=== PATIENT | male | born 1950 | race Caucasian/White ===

== ENCOUNTER → 2017-04-11 | Outpatient (CLI) | payer OTHER ==
[~2017-04-11] MED LIST: ASPI-621 PO; ATOR80TA75 PO; CITA10TA8 PO; DOXE25CA PO; LISI5TAB7 PO; METO25TA91 PO; NITR12SP2 SL; TICA90TA PO
== END | disposition home or self-care (01) ==
LOC: RAD 13:43
PROVIDERS: ATTEND Neurological Surgery
DX: M76.61 Achilles tendinitis, right leg (principal)

== ENCOUNTER → 2017-04-14 | Outpatient (CLI) | payer OTHER ==
[2017-04-14 07:26] LABS: ASPARTATE AMINO TRANSFERASE 19 U/L (15-37); BLOOD UREA NITROGEN 20 mg/dL (7-18)
== END | disposition home or self-care (01) ==
LOC: LAB 07:03
PROVIDERS: ATTEND Internal Medicine Cardiovascular Disease
DX: E78.2 Mixed hyperlipidemia (principal)
CPT/HCPCS: 36415; 80053; 80061

== ENCOUNTER → 2018-10-11 | Outpatient (CLI) | payer MEDICARE ==
[~2018-10-11] MED LIST changes: -ASPI-621 PO; +ASPI81TA45 PO; +ATOR-2 PO; -ATOR80TA75 PO
== END | disposition home or self-care (01) ==
LOC: CFH 07:22
PROVIDERS: ATTEND Internal Medicine Cardiovascular Disease
DX: I25.10 Atherosclerotic heart disease of native coronary artery without angina pectoris (principal); I25.2 Old myocardial infarction
CPT/HCPCS: 78452; 93017; A9502

== ENCOUNTER 2019-01-19 22:09 | Inpatient (IN) | payer MEDICARE ==
[~2019-01-19] VITALS: Ht 167.6 cm; Wt 70.4 kg
[2019-01-19] MEDS ORDERED: ONDANSETRON 2MG/ML, 2ML IVPush ONE (22:30)
[2019-01-19] MEDS ORDERED: ASPIRIN 81 MG TABLET CHEW PO ONE (22:30)
[2019-01-19] MEDS ORDERED: MORPHINE SULFATE 4 MG/ML, 1ML IVPush PRN (22:30)
--- NOTE | 2019-01-19 22:35 | NUR ---
Dr. Kumar at bedside to evaluate pt. XR complete. Pt c/o left side CP intermittently since his heart attacks and stents 2 years ago. Pt reports that CP tonight. Pt states that he has been feeling palpitations, mainly at night. PVCs noted on 4 lead. Pt states he had a normal stress test 2 months ago.
--- NOTE | 2019-01-19 22:38 | NUR ---
PIV started, labs drawn and sent via tubes. Pt remains on all monitors.
--- NOTE | 2019-01-19 22:40 | NUR ---
Pt declining pain medication, this RN to bring in ASA.
[2019-01-19 23:12] LABS: BASOPHILS # (AUTO) 0.07 x10^3/uL (0-0.1); BASOPHILS % (AUTO) 1 % (0-1); EOSINOPHILS # (AUTO) 0.17 x10^3/uL (0-0.4); EOSINOPHILS % (AUTO) 3 % (1-7); LYMPHOCYTES # (AUTO) 2.85 x10^3/uL (1-3.4); LYMPHOCYTES % (AUTO) 44 % (22-44); MD NO; MEAN CORPUSCULAR HEMOGLOBIN 30.3 pg (27.5-34.5); MEAN CORPUSCULAR HGB CONC 33.9 g/dL (33.2-36.2); MEAN CORPUSCULAR VOLUME 89.4 fL (81-97); MEAN PLATELET VOLUME 7.7 fL (7.4-10.4); MONOCYTES # (AUTO) 0.57 x10^3/uL (0.2-0.8); MONOCYTES % (AUTO) 9 % (2-9); NEUTROPHILS # (AUTO) 2.81 x10^3/uL (1.8-6.8); NEUTROPHILS % (AUTO) 43 % (42-75); PLATELET COUNT 247 x10^3/uL (130-400); RED CELL DISTRIBUTION WIDTH 13.7 % (9.4-14.8)
[2019-01-19 23:17] LABS: ALANINE AMINOTRANSFERASE 33 U/L (12-78); ALBUMIN 3.6 g/dL (3.4-5.0); ANION GAP 5 mmol/L (5-15); CALCIUM 10.3 mg/dL (8.5-10.1); CHLORIDE 113 mmol/L (98-107); CREATININE 1.29 mg/dL (0.7-1.3); INTERNATIONAL NORMALIZED RATIO 0.95 (0.93-1.1)
[2019-01-19 23:22] LABS: ALKALINE PHOSPHATASE 65 U/L (45-117); BILIRUBIN,TOTAL 0.5 mg/dL (0.2-1.0); TOTAL PROTEIN 6.6 g/dL (6.4-8.2); TROPONIN I < 0.015 ng/mL (0.000-0.045)
[2019-01-19] MEDS ORDERED: ASPIRIN 81 MG TABLET CHEW ONE (23:29)
--- NOTE | 2019-01-19 23:40 | NUR ---
Pt medicated per MAR.
[2019-01-20] MEDS ORDERED: lisinopril (00:28)
[2019-01-20] MEDS ORDERED: [UNRECOGNIZED DRUG - OTHER] SC (00:28)
[2019-01-20] MEDS ORDERED: LISI5TAB7 PO (00:28)
--- NOTE | 2019-01-20 00:29 | NUR ---
Telephone SBAR report given to RN[facility]acido. Pt made aware of new room assignment.
[2019-01-20] MEDS ORDERED: POLYETHYLENE GLYCOL 17 GM PACKET PO PRN (01:00)
[2019-01-20] MEDS ORDERED: hydrALAzine 20 MG/ML, 1ML IVPush PRN (01:00)
[2019-01-20] MEDS ORDERED: ACETAMINOPHEN 325 MG TABLET PO PRN (01:00)
[2019-01-20] MEDS ORDERED: ENOXAPARIN 40 MG/0.4 ML SQ SCH (01:00)
[2019-01-20 01:12] LABS: TROPONIN I < 0.015 ng/mL (0.000-0.045)
[2019-01-20 01:38] VITALS: BP 137/82
[2019-01-20 01:53] VITALS: BP 137/82
[2019-01-20] MEDS ORDERED: METOPROLOL SUCCINATE 25 MG TAB.ER.24H PO SCH (06:00)
[2019-01-20 06:10] VITALS: BP 127/86
[2019-01-20 07:00] LABS: TROPONIN I < 0.015 ng/mL (0.000-0.045)
[2019-01-20 07:57] VITALS: BP 118/74
[2019-01-20] MEDS ORDERED: CITALOPRAM 10 MG TABLET PO SCH (09:00)
[2019-01-20] MEDS ORDERED: ASPIRIN 81 MG TABLET EC PO SCH (09:00)
[2019-01-20] MEDS ORDERED: DOXEPIN 100 MG CAPSULE PO SCH (09:00)
[2019-01-20] MEDS ORDERED: LISINOPRIL 5 MG TABLET PO SCH (09:00)
== END 2019-01-20 09:55 | disposition home or self-care (01) | DRG 309 ==
LOC: ED 23:18 → EDIP 23:52 → 5SO 01-20 01:01 → DCLOUNGE 01-20 09:46
PROVIDERS: ADMIT Family Medicine; ATTEND Family Medicine
DX: I48.92 Unspecified atrial flutter (principal); I13.0 Hypertensive heart and chronic kidney disease with heart failure and stage 1 through stage 4 chronic kidney disease, or unspecified chronic kidney disease; I50.32 Chronic diastolic (congestive) heart failure; E78.5 Hyperlipidemia, unspecified; F17.290 Nicotine dependence, other tobacco product, uncomplicated; I25.10 Atherosclerotic heart disease of native coronary artery without angina pectoris; F32.9 Major depressive disorder, single episode, unspecified; I49.3 Ventricular premature depolarization; K21.9 Gastro-esophageal reflux disease without esophagitis; N18.3 Chronic kidney disease, stage 3 (moderate); I25.2 Old myocardial infarction; Z90.49 Acquired absence of other specified parts of digestive tract; Z95.5 Presence of coronary angioplasty implant and graft; Z79.82 Long term (current) use of aspirin; I48.91 Unspecified atrial fibrillation
CPT/HCPCS: 36415; 71045; 80053; 83880; 84484; 85025; 85610; 85730; 93005; 99285; J1650

== ENCOUNTER → 2019-01-26 | Outpatient (CLI) | payer MEDICARE ==
[~2019-01-26] MED LIST changes: +[UNRECOGNIZED DRUG - OTHER] SC; +lisinopril
[2019-01-26 09:57] LABS: CHLORIDE 111 mmol/L (98-107)
[2019-01-26 10:05] LABS: ALBUMIN 3.7 g/dL (3.4-5.0); ANION GAP 7 mmol/L (5-15); BILIRUBIN,TOTAL 1.3 mg/dL (0.2-1.0); CALCIUM 10.3 mg/dL (8.5-10.1); CREATININE 1.42 mg/dL (0.7-1.3); TOTAL PROTEIN 6.8 g/dL (6.4-8.2)
[2019-01-26 10:39] LABS: ALANINE AMINOTRANSFERASE 27 U/L (12-78); ALKALINE PHOSPHATASE 58 U/L (45-117); FREE T4 (FREE THYROXINE) 1.02 ng/dL (0.76-1.46)
== END | disposition home or self-care (01) ==
LOC: LAB 08:54
PROVIDERS: ATTEND Internal Medicine
DX: E83.52 Hypercalcemia (principal); E03.9 Hypothyroidism, unspecified
CPT/HCPCS: 36415; 80053; 82306; 82330; 83970; 84439; 84443

== ENCOUNTER → 2019-03-07 | Outpatient (CLI) | payer MEDICARE | END | disposition home or self-care (01) | LOC: LAB 10:30 | PROVIDERS: ATTEND Surgery | DX: E83.51 Hypocalcemia (principal) | CPT/HCPCS: 36415; 82310 ==

== ENCOUNTER → 2019-04-16 | Outpatient (CLI) | payer MEDICARE ==
[2019-04-16 07:33] LABS: BASOPHILS # (AUTO) 0.08 x10^3/uL (0-0.1); BASOPHILS % (AUTO) 2 % (0-1); EOSINOPHILS # (AUTO) 0.16 x10^3/uL (0-0.4); EOSINOPHILS % (AUTO) 3 % (1-7); LYMPHOCYTES # (AUTO) 1.73 x10^3/uL (1-3.4); LYMPHOCYTES % (AUTO) 33 % (22-44); MD NO; MEAN CORPUSCULAR HEMOGLOBIN 29.6 pg (27.5-34.5); MEAN CORPUSCULAR HGB CONC 32.4 g/dL (33.2-36.2); MEAN CORPUSCULAR VOLUME 91.4 fL (81-97); MEAN PLATELET VOLUME 7.6 fL (7.4-10.4); MONOCYTES # (AUTO) 0.53 x10^3/uL (0.2-0.8); MONOCYTES % (AUTO) 10 % (2-9); NEUTROPHILS # (AUTO) 2.72 x10^3/uL (1.8-6.8); NEUTROPHILS % (AUTO) 52 % (42-75); PLATELET COUNT 268 x10^3/uL (130-400); RED BLOOD COUNT 5.32 x10^6/uL (4.38-5.82); RED CELL DISTRIBUTION WIDTH 14.1 % (9.4-14.8)
[2019-04-16 07:35] LABS: MICROSCOPIC NOT IND
[2019-04-16 07:40] LABS: CULTURE INDICATED? NO
[2019-04-16 07:43] LABS: ALANINE AMINOTRANSFERASE 26 U/L (12-78); ALBUMIN 3.8 g/dL (3.4-5.0); ANION GAP 7 mmol/L (5-15); CALCIUM 8.8 mg/dL (8.5-10.1); CHLORIDE 111 mmol/L (98-107); CHOLESTEROL, TOTAL 211 mg/dL (140-239)
[2019-04-16 07:54] LABS: ALKALINE PHOSPHATASE 57 U/L (45-117); BILIRUBIN,TOTAL 0.6 mg/dL (0.2-1.0); CHOL/HDL RATIO 3.3; HDL CHOL % 30 % (26-37); HDL CHOLESTEROL (DIRECT) 64 mg/dL (40-60); LDL CHOLESTEROL,CALCULATED 128 mg/dL (54-169); PSA SCREEN 2.36 ng/mL (0.00-4.00); TOTAL PROTEIN 6.9 g/dL (6.4-8.2); TRIGLYCERIDES 93 mg/dL (50-200); VLDL CHOLESTEROL 19 mg/dL (0-25)
== END | disposition home or self-care (01) ==
LOC: LAB 07:14
PROVIDERS: ATTEND Family Medicine
DX: Z12.5 Encounter for screening for malignant neoplasm of prostate (principal); N18.3 Chronic kidney disease, stage 3 (moderate); E78.5 Hyperlipidemia, unspecified; K21.0 Gastro-esophageal reflux disease with esophagitis; R73.02 Impaired glucose tolerance (oral)
CPT/HCPCS: 36415; 80053; 80061; 84443; 85025; G0103

== ENCOUNTER 2019-09-24 05:58 | Emergency (ER) | payer MEDICARE ==
[~2019-09-24] VITALS: Ht 167.6 cm; Wt 71.1 kg
[2019-09-24 06:43] LABS: MICROSCOPIC NOT IND
[2019-09-24 06:47] LABS: CULTURE INDICATED? NO
--- NOTE | 2019-09-24 06:48 | NUR ---
REPORT GIVEN TO ONCOMING [facility] [place]
--- NOTE | 2019-09-24 06:48 | NUR ---
report received from [facility].
[2019-09-24 07:18] LABS: BASOPHILS # (AUTO) 0.06 x10^3/uL (0-0.1); BASOPHILS % (AUTO) 1 % (0-1); EOSINOPHILS # (AUTO) 0.21 x10^3/uL (0-0.4); EOSINOPHILS % (AUTO) 4 % (1-7); LYMPHOCYTES # (AUTO) 1.32 x10^3/uL (1-3.4); LYMPHOCYTES % (AUTO) 27 % (22-44); MD NO; MEAN CORPUSCULAR HGB CONC 33.2 g/dL (33.2-36.2); MEAN CORPUSCULAR VOLUME 93.4 fL (81-97); MEAN PLATELET VOLUME 7.8 fL (7.4-10.4); MONOCYTES # (AUTO) 0.55 x10^3/uL (0.2-0.8); MONOCYTES % (AUTO) 11 % (2-9); NEUTROPHILS # (AUTO) 2.74 x10^3/uL (1.8-6.8); NEUTROPHILS % (AUTO) 56 % (42-75); PLATELET COUNT 260 x10^3/uL (130-400); RED BLOOD COUNT 5.17 x10^6/uL (4.38-5.82); RED CELL DISTRIBUTION WIDTH 14.5 % (9.4-14.8)
[2019-09-24 07:28] LABS: ALANINE AMINOTRANSFERASE 36 U/L (12-78); ALBUMIN 3.5 g/dL (3.4-5.0); ANION GAP 4 mmol/L (5-15); CALCIUM 8.6 mg/dL (8.5-10.1); CHLORIDE 112 mmol/L (98-107)
[2019-09-24 07:31] LABS: ALKALINE PHOSPHATASE 47 U/L (45-117); BILIRUBIN,TOTAL 0.7 mg/dL (0.2-1.0); TOTAL PROTEIN 6.9 g/dL (6.4-8.2)
--- NOTE | 2019-09-24 07:33 | NUR ---
pt resting in [facility]. pt's aox4. resps even and unlabored.
--- NOTE | 2019-09-24 08:39 | NUR ---
PT TO CT AT THIS TIME.
--- NOTE | 2019-09-24 08:59 | NUR ---
report received from [facility]; pt resting on [place], a&o, resps even and unlabored. bp and spo2 monitors in place. call light in reach. pt updated with POC. awaiting CT results and dispo, pt instructed to remain NPO.
--- NOTE | 2019-09-24 09:29 | NUR ---
EDMD SAHM AT BEDSIDE TO UPDATE PT WITH RESULTS AND POC.
[2019-09-24 09:45] VITALS: BP 134/80
--- NOTE | 2019-09-24 09:45 | NUR ---
PT GIVEN DC INSTRUCTIONS, PT A&O, RESPS EVEN AND UNLABORED. PT INSTRUCTED BY NEIL [facility]O TO DISCONTINUE ABX HE HAS BEEN TAKING FOR UTI. PT INSTRUCTED TO F/U WITH PCP. PT AMB TO DC DESK WITH STEADY GAIT. NADN AT DC.
== END 2019-09-24 09:45 | disposition home or self-care (01) ==
LOC: ED 09:19
DX: R10.12 Left upper quadrant pain (principal); R10.32 Left lower quadrant pain; R30.0 Dysuria; I12.9 Hypertensive chronic kidney disease with stage 1 through stage 4 chronic kidney disease, or unspecified chronic kidney disease; N18.2 Chronic kidney disease, stage 2 (mild); I25.2 Old myocardial infarction; E78.5 Hyperlipidemia, unspecified; K21.9 Gastro-esophageal reflux disease without esophagitis
CPT/HCPCS: 36415; 74176; 80053; 81003; 83690; 85025; 99284

== ENCOUNTER → 2019-10-30 | Outpatient (CLI) | payer MEDICARE ==
[2019-10-30 07:31] LABS: BASOPHILS % (AUTO) 2 % (0-1); EOSINOPHILS # (AUTO) 0.22 x10^3/uL (0-0.4); EOSINOPHILS % (AUTO) 4 % (1-7); LYMPHOCYTES # (AUTO) 2.24 x10^3/uL (1-3.4); LYMPHOCYTES % (AUTO) 43 % (22-44); MD NO; MEAN CORPUSCULAR HEMOGLOBIN 30.5 pg (27.5-34.5); MEAN CORPUSCULAR HGB CONC 33.6 g/dL (33.2-36.2); MEAN CORPUSCULAR VOLUME 90.9 fL (81-97); MEAN PLATELET VOLUME 7.6 fL (7.4-10.4); MONOCYTES # (AUTO) 0.57 x10^3/uL (0.2-0.8); MONOCYTES % (AUTO) 11 % (2-9); NEUTROPHILS # (AUTO) 2.13 x10^3/uL (1.8-6.8); NEUTROPHILS % (AUTO) 41 % (42-75); PLATELET COUNT 286 x10^3/uL (130-400); RED BLOOD COUNT 5.38 x10^6/uL (4.38-5.82); RED CELL DISTRIBUTION WIDTH 14.2 % (9.4-14.8)
[2019-10-30 07:42] LABS: ALBUMIN 3.6 g/dL (3.4-5.0); ANION GAP 5 mmol/L (5-15); CALCIUM 8.8 mg/dL (8.5-10.1); CHLORIDE 109 mmol/L (98-107)
[2019-10-30 07:44] LABS: ALANINE AMINOTRANSFERASE 26 U/L (12-78); ALKALINE PHOSPHATASE 44 U/L (45-117); BILIRUBIN,TOTAL 0.8 mg/dL (0.2-1.0); CREATININE 1.35 mg/dL (0.7-1.3)
[2019-10-30 07:58] LABS: MICROSCOPIC AUTO
[2019-10-30 10:08] LABS: CHOL/HDL RATIO 2.8; LDL/HDL RATIO 1.5 (0.5-3.0)
== END | disposition home or self-care (01) ==
LOC: LAB 07:10
PROVIDERS: ATTEND Internal Medicine
DX: I12.9 Hypertensive chronic kidney disease with stage 1 through stage 4 chronic kidney disease, or unspecified chronic kidney disease (principal); N18.3 Chronic kidney disease, stage 3 (moderate); E78.2 Mixed hyperlipidemia; I25.10 Atherosclerotic heart disease of native coronary artery without angina pectoris; I34.0 Nonrheumatic mitral (valve) insufficiency; R07.9 Chest pain, unspecified
CPT/HCPCS: 36415; 80053; 80061; 81001; 82570; 84100; 84156; 85025

== ENCOUNTER 2020-01-31 07:16 | Outpatient (CLI) | payer MEDICARE ==
[2020-01-31 08:12] LABS: BASOPHILS # (AUTO) 0.05 x10^3/uL (0-0.1); BASOPHILS % (AUTO) 2 % (0-1); EOSINOPHILS # (AUTO) 0.09 x10^3/uL (0-0.4); EOSINOPHILS % (AUTO) 3 % (1-7); LYMPHOCYTES # (AUTO) 1.22 x10^3/uL (1-3.4); LYMPHOCYTES % (AUTO) 34 % (22-44); MD NO; MEAN CORPUSCULAR HEMOGLOBIN 30.2 pg (27.5-34.5); MEAN CORPUSCULAR HGB CONC 33.4 g/dL (33.2-36.2); MEAN CORPUSCULAR VOLUME 90.5 fL (81-97); MEAN PLATELET VOLUME 7.6 fL (7.4-10.4); MONOCYTES # (AUTO) 0.34 x10^3/uL (0.2-0.8); MONOCYTES % (AUTO) 9 % (2-9); NEUTROPHILS # (AUTO) 1.87 x10^3/uL (1.8-6.8); NEUTROPHILS % (AUTO) 52 % (42-75); PLATELET COUNT 255 x10^3/uL (130-400); RED CELL DISTRIBUTION WIDTH 14.6 % (9.4-14.8)
[2020-01-31 08:20] LABS: ALBUMIN 3.6 g/dL (3.4-5.0); ANION GAP 6 mmol/L (5-15); CALCIUM 8.9 mg/dL (8.5-10.1); CHLORIDE 110 mmol/L (98-107)
[2020-01-31 08:29] LABS: ALANINE AMINOTRANSFERASE 27 U/L (12-78); ALKALINE PHOSPHATASE 46 U/L (45-117); BILIRUBIN,TOTAL 0.5 mg/dL (0.2-1.0); CHOL/HDL RATIO 2.6; CHOLESTEROL, TOTAL 161 mg/dL (140-239); CREATININE 1.56 mg/dL (0.7-1.3); HDL CHOL % 39 % (26-37); HDL CHOLESTEROL (DIRECT) 63 mg/dL (40-60); HIGH-SENSITIVITY CRP 0.22 mg/dL (0.02-0.30); LDL CHOLESTEROL,CALCULATED 79 mg/dL (54-169); LDL/HDL RATIO 1.3 (0.5-3.0); PSA SCREEN 1.73 ng/mL (0.00-4.00); TOTAL PROTEIN 7.1 g/dL (6.4-8.2); TRIGLYCERIDES 95 mg/dL (50-200); VLDL CHOLESTEROL 19 mg/dL (0-25)
== END 2020-01-31 23:59 | disposition home or self-care (01) ==
LOC: LAB 07:16
PROVIDERS: ATTEND Family Medicine
DX: Z12.5 Encounter for screening for malignant neoplasm of prostate (principal); D64.9 Anemia, unspecified; E11.9 Type 2 diabetes mellitus without complications; E78.5 Hyperlipidemia, unspecified; E03.9 Hypothyroidism, unspecified; E55.9 Vitamin D deficiency, unspecified; E88.81 Metabolic syndrome and other insulin resistance; E23.0 Hypopituitarism; R41.3 Other amnesia; E72.11 Homocystinuria; N40.0 Benign prostatic hyperplasia without lower urinary tract symptoms; Z79.899 Other long term (current) drug therapy
CPT/HCPCS: 80053; 80061; 82306; 82626; 82670; 83036; 83090; 83525; 83735; 84140; 84146; 84402; 84403; 84443; 85025; 86141; G0103

== ENCOUNTER 2020-03-25 11:55 | Emergency (ER) | payer MEDICARE ==
[~2020-03-25] VITALS: Ht 167.6 cm; Wt 69.5 kg
[2020-03-25] MEDS ORDERED: ASPIRIN 81 MG TABLET CHEW ONE (12:45)
[2020-03-25 12:51] LABS: BASOPHILS # (AUTO) 0.07 x10^3/uL (0-0.1); BASOPHILS % (AUTO) 1 % (0-1); EOSINOPHILS # (AUTO) 0.06 x10^3/uL (0-0.4); EOSINOPHILS % (AUTO) 1 % (1-7); LYMPHOCYTES # (AUTO) 1.36 x10^3/uL (1-3.4); LYMPHOCYTES % (AUTO) 25 % (22-44); MD NO; MEAN CORPUSCULAR HEMOGLOBIN 30.9 pg (27.5-34.5); MEAN CORPUSCULAR HGB CONC 33.3 g/dL (33.2-36.2); MEAN CORPUSCULAR VOLUME 92.8 fL (81-97); MEAN PLATELET VOLUME 7.7 fL (7.4-10.4); MONOCYTES # (AUTO) 0.53 x10^3/uL (0.2-0.8); MONOCYTES % (AUTO) 10 % (2-9); NEUTROPHILS % (AUTO) 63 % (42-75); PLATELET COUNT 248 x10^3/uL (130-400); RED BLOOD COUNT 4.87 x10^6/uL (4.38-5.82); RED CELL DISTRIBUTION WIDTH 13.9 % (9.4-14.8)
[2020-03-25 12:59] LABS: ALANINE AMINOTRANSFERASE 26 U/L (12-78); ALBUMIN 3.5 g/dL (3.4-5.0); CALCIUM 8.7 mg/dL (8.5-10.1); CREATININE 1.48 mg/dL (0.7-1.3)
[2020-03-25] MEDS ORDERED: ASPIRIN 81 MG TABLET CHEW PO ONE (13:00)
[2020-03-25 13:03] LABS: ALKALINE PHOSPHATASE 46 U/L (45-117); BILIRUBIN,TOTAL 0.9 mg/dL (0.2-1.0); TOTAL PROTEIN 6.9 g/dL (6.4-8.2); TROPONIN I < 0.015 ng/mL (0.000-0.045)
[2020-03-25 13:13] LABS: ANION GAP 6 mmol/L (5-15); CHLORIDE 110 mmol/L (98-107)
[2020-03-25] MEDS ORDERED: SODIUM CHLORIDE FLUSH 10ML SYR IVF ONE (13:30)
[2020-03-25 14:26] VITALS: BP 129/80
== END 2020-03-25 14:29 | disposition home or self-care (01) ==
LOC: ED 14:07
DX: R07.89 Other chest pain (principal); R11.0 Nausea; F41.1 Generalized anxiety disorder; R00.2 Palpitations; R94.31 Abnormal electrocardiogram [ECG] [EKG]; I10 Essential (primary) hypertension; K21.9 Gastro-esophageal reflux disease without esophagitis; I25.2 Old myocardial infarction
CPT/HCPCS: 36415; 71045; 80053; 83690; 84484; 85025; 93005; 99285

== ENCOUNTER → 2020-04-26 | Outpatient (CLI) | payer MEDICARE ==
[2020-04-26 11:03] LABS: BASOPHILS # (AUTO) 0.06 x10^3/uL (0-0.1); BASOPHILS % (AUTO) 1 % (0-1); EOSINOPHILS # (AUTO) 0.13 x10^3/uL (0-0.4); EOSINOPHILS % (AUTO) 2 % (1-7); LYMPHOCYTES % (AUTO) 35 % (22-44); MD NO; MEAN CORPUSCULAR HEMOGLOBIN 30.7 pg (27.5-34.5); MEAN CORPUSCULAR HGB CONC 33.4 g/dL (33.2-36.2); MEAN CORPUSCULAR VOLUME 91.9 fL (81-97); MEAN PLATELET VOLUME 8.3 fL (7.4-10.4); MONOCYTES # (AUTO) 0.62 x10^3/uL (0.2-0.8); MONOCYTES % (AUTO) 10 % (2-9); NEUTROPHILS # (AUTO) 3.26 x10^3/uL (1.8-6.8); NEUTROPHILS % (AUTO) 52 % (42-75); PLATELET COUNT 219 x10^3/uL (130-400); RED BLOOD COUNT 5.11 x10^6/uL (4.38-5.82)
[2020-04-26 11:09] LABS: ALANINE AMINOTRANSFERASE 27 U/L (12-78); ALBUMIN 3.8 g/dL (3.4-5.0); ANION GAP 6 mmol/L (5-15); CALCIUM 8.9 mg/dL (8.5-10.1); CHLORIDE 111 mmol/L (98-107); CREATININE 1.39 mg/dL (0.7-1.3)
[2020-04-26 11:13] LABS: ALKALINE PHOSPHATASE 50 U/L (45-117); BILIRUBIN,TOTAL 1.1 mg/dL (0.2-1.0); PSA SCREEN 2.06 ng/mL (0.00-4.00); TOTAL PROTEIN 7.1 g/dL (6.4-8.2)
== END | disposition home or self-care (01) ==
LOC: LAB 09:29
PROVIDERS: ATTEND Surgery
DX: Z12.5 Encounter for screening for malignant neoplasm of prostate (principal); E83.51 Hypocalcemia
CPT/HCPCS: 36415; 80053; 85025; G0103

== ENCOUNTER 2020-08-11 02:19 | Emergency (ER) | payer MEDICARE ==
[~2020-08-11 02:19] MED LIST changes: +NITR12SP10 SL; -NITR12SP2 SL
== END 2020-08-11 02:48 | disposition left against medical advice (07) ==
LOC: ED 02:45
DX: Z53.21 Procedure and treatment not carried out due to patient leaving prior to being seen by health care provider (principal)

== ENCOUNTER → 2020-11-04 | Outpatient (CLI) | payer MEDICARE | END | disposition home or self-care (01) | LOC: LAB 12:47 | PROVIDERS: ATTEND Internal Medicine Geriatric Medicine | DX: R10.30 Lower abdominal pain, unspecified (principal); R19.7 Diarrhea, unspecified | CPT/HCPCS: 36415; 82784; 83516; 86255 ==

== ENCOUNTER → 2021-04-29 | Outpatient (CLI) | payer MEDICARE ==
[2021-04-29 12:02] LABS: BASOPHILS % (AUTO) 1 % (0-1); EOSINOPHILS % (AUTO) 2 % (1-7); LYMPHOCYTES % (AUTO) 29 % (22-44); MEAN CORPUSCULAR HGB CONC 34.1 g/dL (33.2-36.2); MEAN PLATELET VOLUME 7.7 fL (7.4-10.4); MONOCYTES % (AUTO) 10 % (2-9); NEUTROPHILS % (AUTO) 59 % (42-75); PLATELET COUNT 260 x10^3/uL (130-400); RED BLOOD COUNT 5.01 x10^6/uL (4.38-5.82); RED CELL DISTRIBUTION WIDTH 13.4 % (9.4-14.8)
[2021-04-29 12:10] LABS: ALANINE AMINOTRANSFERASE 30 U/L (12-78); ALBUMIN 3.7 g/dL (3.4-5.0); ANION GAP 3 mmol/L (5-15); CALCIUM 8.9 mg/dL (8.5-10.1); CHLORIDE 108 mmol/L (98-107); CHOLESTEROL, TOTAL 167 mg/dL (140-239); CREATININE 1.51 mg/dL (0.7-1.3); TRIGLYCERIDES 111 mg/dL (50-200); VLDL CHOLESTEROL 22 mg/dL (0-25)
[2021-04-29 12:17] LABS: MICROSCOPIC AUTO
[2021-04-29 12:20] LABS: ALKALINE PHOSPHATASE 49 U/L (45-117); CHOL/HDL RATIO 2.5; HDL CHOL % 40 % (26-37); HDL CHOLESTEROL (DIRECT) 66 mg/dL (40-60); LDL CHOLESTEROL,CALCULATED 79 mg/dL (54-169); LDL/HDL RATIO 1.2 (0.5-3.0); TOTAL PROTEIN 7.2 g/dL (6.4-8.2)
== END | disposition home or self-care (01) ==
LOC: LAB 11:22
PROVIDERS: ATTEND Family Medicine
DX: I25.10 Atherosclerotic heart disease of native coronary artery without angina pectoris (principal); N18.9 Chronic kidney disease, unspecified; E78.5 Hyperlipidemia, unspecified; E83.52 Hypercalcemia; Z00.00 Encounter for general adult medical examination without abnormal findings; R73.02 Impaired glucose tolerance (oral)
CPT/HCPCS: 36415; 80053; 80061; 81001; 82306; 84153; 84443; 85025; G0103

== ENCOUNTER 2021-06-19 09:08 | Day surgery (SDC) | payer MEDICARE ==
[~2021-06-19] VITALS: Ht 167.6 cm; Wt 73.3 kg
[2021-06-19 10:12] VITALS: BP 131/94
[2021-06-19 10:40] LABS: INTERNATIONAL NORMALIZED RATIO 0.95 (0.93-1.1); PROTHROMBIN TIME 10.2 Seconds (9.6-11.5)
[2021-06-19] MEDS ORDERED: FENTANYL PF 100 MCG/2ML ONE (10:46)
[2021-06-19] MEDS ORDERED: MIDAZOLAM 1 MG/ML, 5ML ONE (10:46)
[2021-06-19] MEDS ORDERED: NALOXONE 1 MG/ML, 2ML ONE (10:47)
[2021-06-19] MEDS ORDERED: FLUMAZENIL 0.1 MG/1 ML, 5ML ONE (10:47)
== END 2021-06-19 12:45 | disposition home or self-care (01) ==
LOC: OUT 09:08 → EDSTATUS 11:00 → OUT 12:45
PROVIDERS: ATTEND Internal Medicine Nephrology
DX: N18.31 Chronic kidney disease, stage 3a (principal); N02.8 Recurrent and persistent hematuria with other morphologic changes; I25.10 Atherosclerotic heart disease of native coronary artery without angina pectoris; I25.2 Old myocardial infarction; E78.5 Hyperlipidemia, unspecified; F17.210 Nicotine dependence, cigarettes, uncomplicated; Z79.01 Long term (current) use of anticoagulants; Z79.899 Other long term (current) drug therapy; Z91.041 Radiographic dye allergy status; Z95.5 Presence of coronary angioplasty implant and graft
CPT/HCPCS: 36415; 50200; 77012; 85610; 88300; 99156; 99157; J2250; J3010; J2310